=== PATIENT | female | born 1960 | race Caucasian/White ===

== ENCOUNTER 2023-01-25 07:25 | Outpatient (OUT) | payer BC, SELFPAY ==
--- NOTE | 2023-01-25 | VEIN_ITS ---
Patient: SALVADOR SERRATO Exam Date: 01/25/2023 : 1960 Gender:F Ordering : DR JOHNNA BATEMAN M.D. Admission #: [id number] Family : Order #: [id number] CLICK HERE TO VIEW EXAM RADIOLOGY REPORT PROCEDURE: VC EXT VENOUS REFLUX PEDRO LUIS LMTD COMPARISON: None. INDICATIONS: Pain due to varicose veins of bilateral legs I83.813 TECHNIQUE: Duplex imaging of the lower extremity to assess the deep and superficial venous system for the presence of deep or superficial venous incompetence and to document the location and severity of disease. The study includes evaluation of the great saphenous vein (GSV), anterior accessory saphenous vein (AASV) and small saphenous vein (SSV). Patient scanned in reverse Trendelenburg and standing. FINDINGS: RIGHT LOWER EXTREMITY: Saphenofemoral Junction Reflux: Yes 11.8mm 1.3 sec GSV: Diam (mm) Reflux/ Time (sec) Proximal Thigh 7.2 Yes 0.9 Mid Thigh 4.6 Yes 0.2 Distal Thigh 4.6 No Prox Calf 3.9 Yes 0.5 Mid Calf 3.0 Yes 0.3 Saphenopopliteal Junction Reflux: 3.5mm Yes 0.2 SSV: Proximal Calf 2.9 Yes 0.3 Mid Calf 3.4 No AASV: Proximal Thigh 5.9 Yes 0.8 Mid Thigh 4.7 Yes 0.4 Distal Thigh Thrombi: No acute or chronic thrombus. Compressibility: Normal. Flow: Minimal deep venous reflux. Preforator: Distal medial lower leg 2.4 mm without reflux. Mid medial lower leg 5.5 mm with 3.5s reflux. Tech Note: Thigh extention of SSV. Incompetent varicose vein mid medial lower leg measures 4.3 mm with 1.7s reflux. Distal medial thigh varicosity off of GSV measures 4.3 mm with 0.6s reflux. Varicose vein anterior knee off AASV measures 4.0 mm with 1.5s reflux. Varicose vein medial popliteal fossa measures 4.1 mm with 0.6s reflux. LEFT LOWER EXTREMITY: Saphenofemoral Junction Reflux: Yes 9.2 mm 4.2 sec GSV: Diam (mm) Reflux/Time (sec) Proximal Thigh 6.9 Yes 1.3 Mid Thigh 5.5 Yes 1.1 Distal Thigh 4.7 Yes 0.4 Prox Calf 3.9 Yes 0.4 Mid Calf 1.7 No Saphenopopliteal Junction Relux: 4.6 mm No SSV: Proximal Calf 3.0 No Mid Calf 2.5 Yes 4.5 AASV: Proximal Thigh 5.8 Yes 1.3 Mid Thigh 3.5 Yes 0.6 Distal Thigh Thrombi: No acute or chronic thrombus. Compressibility: Normal. Flow: Moderate deep venous reflux. [place]:Distal medial lower leg 2.6 mm with 4.4s reflux. Tech Note: Fluid collection medial popliteal fossa measures 4.8 x 1.8 x 2.6 cm. Thigh extention of SSV. Incompetent varicose vein proximal medial lower leg measures 3.3 mm with 0.5s reflux. Varicosity distal medial thigh measures 3.4 mm with 2.8s reflux. Proximal medial posterior calf varicose vein measures 3.5 mm with 0.4s reflux. CONCLUSION: 1. Dilated, incompetent great saphenous and anterior accessory saphenous veins bilaterally. 2. 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 3. Numerous dilated and incompetent branch saphenous varicosities bilaterally. Dictated by: Beka Butts M.D. on 01/25/2023 at 08:40 Approved by: Beka Butts M.D. on 01/25/2023 at 10:25
--- NOTE | 2023-01-25 | VEIN_ITS ---
Patient: SALVADOR SERRATO Exam Date: 01/25/2023 : 1960 Gender:F Ordering : DR JOHNNA BATEMAN M.D. Admission #: [id number] Family : Order #: [id number] CLICK HERE TO VIEW EXAM RADIOLOGY REPORT PROCEDURE: VC FACILITY EST COMPREHENSIVE VEIN CENTER - OFFICE VISIT INITIAL COMPARISON: VC EXT VENOUS REFLUX PEDRO LUIS LMTD, 01/25/2023. PROGRESS NOTES: [age] year old female who presents with a 4 year history of aching, burning, heaviness, itching, stinging, and dull pain. The patient's left leg symptoms are worse than the right. There has been a progression of symptoms over past 4 years. This increases with prolonged leg dependency. The patient describes an improvement with compression stockings, rest and elevation. The patient denies any signs and symptoms to suggest arterial ischemia. The patient describes a family history varicose veins on maternal side. The patient has drinking and smoking history of: occasional alcohol consumption; no tobacco use. Patient has a past medical history significant for hypertension, edema. The patient denies a history of deep venous thrombus or pulmonary embolus. See separate history and physical for medication list. No prior treatment for varicose or spider veins. Current use of compression stockings. After review of nurse notes, history and physical exam I discussed at length the pathophysiology of venous hypertension and possible treatments, therapies and strategies available. We discussed at length the importance of elevating the lower extremities above the level of the heart, increased physical activity and compression stocking use. Ultrasound venous reflux study performed today was discussed at length with the patient. The report demonstrates dilated, incompetent great saphenous and anterior accessory saphenous veins bilaterally, along with numerous incompetent dilated branch saphenous varicosities. PHYSICAL EXAM: The right leg demonstrates multiple varicosities, extensive reticular and spider veins, no ulceration, moderate edema, mild skin discoloration. The left leg demonstrates multiple varicosities, extensive reticular and spider veins, no ulceration, moderate edema, mild skin discoloration. Both thighs, legs and feet were symmetrically warm to the touch. Good posterior tibial and dorsalis pedis pulses were present bilaterally. VEIN/VC Facility EST Comprehensive IMPRESSION: 1. Bilateral lower extremity venous insufficiency 2. Bilateral lower extremity varicose veins 3. Moderate bilateral lower extremity subcutaneous edema 4. No flow significant arterial disease 5. CEAP: C4a, EC, , [place] PLAN: 1. Continued use of compression stockings 2. Elevated legs and increased physical activity symptomatic relief 3. Endovenous laser ablation of bilateral great saphenous and anterior accessory saphenous veins. 4. Microfoam chemical ablation of incompetent branch saphenous varicosities bilaterally. 5. Sclerotherapy of extensive reticular and spider veins bilaterally. Nurse notes, history and physical were reviewed and confirmed, see attached forms. The nurse was present throughout the physical exam and consultation Dictated by: Beka Butts M.D. on 01/25/2023 at 15:01 Approved by: Beka Butts M.D. on 01/25/2023 at 15:12
== END 2023-01-25 07:26 | disposition home or self-care (01) ==
LOC: VC 07:26
PROVIDERS: PCP Radiology Diagnostic Radiology; Visit Provider Radiology Diagnostic Radiology
DX: I83.813 Varicose veins of bilateral lower extremities with pain (principal)
CPT/HCPCS: 93970; G0463

== ENCOUNTER 2023-03-12 12:17 | Outpatient (OUT) | payer BC, SELFPAY ==
--- NOTE | 2023-03-12 | VEIN_ITS ---
[address] [address] Patient Name: SALVADOR SERRATO MRN: [id number] date: 1960 Sex: F Assigned Patient Location: Current Patient Location: Accession/Order Number: [id number] Exam Date: 03/12/2023 12:25 Report Date: 03/12/2023 16:13 At the request of: JOHNNA BATEMAN Procedure: VC Endovenous Ablation 1VeinLT EXAMINATION: VC Endovenous Ablation 1Vein left great saphenous vein HISTORY: Pain due to varicose veins of bilateral legs I83.813 COMPARISON: No relevant comparison available. TECHNIQUE: The risks and benefits of the procedure had been previously discussed, and were rediscussed at length. Informed written consent was obtained. Luther assisted. Time out procedure was performed. The left lower extremity was prepared and draped in the usual sterile fashion to allow knee flexion in the sterile field. Duplex ultrasound probe was draped in a sterile cover, sterile transmission gel was used. Venous mapping was performed with the areas of dilation and large tributaries marked. The total length was 26 cm from the entry at the knee to 3 cm below the saphenofemoral junction. The diameter of the greater saphenous vein ranged from 4-7 mm. A 30 gauge needle and 1% buffered lidocaine was used to anesthetize the entry site. A 4 mm incision was made with a scalpel and the saphenous vein was entered percutaneously under direct ultrasound guidance with a micropuncture set, a single stick was successful in gaining access. A micro-guide wire was inserted and the needle removed. A micro-set including a dilator was inserted over the microwire and the needle and dilator were removed. A 0.018 guide wire was inserted through the micro-set and threaded through the saphenous vein to the saphenofemoral junction. The dilator was removed and an introducer sheath was inserted over the wire until the end of the sheath entered the saphenofemoral junction. The dilator and wire were removed and the 600 micron fiber was introduced and placed and positioned so that it extended beyond the sheath and was 3 cm peripheral to the saphenofemoral femoral junction. Final position of the fiber was determined by ultrasound guidance and duplex imaging. Tumescent anesthetic was delivered by ultrasound guidance. 150 cc of fluid was delivered along the entire course of the saphenous vein. The solution consisted of 1000 cc of normal saline with 40 mL of 1% lidocaine and 20 mL of sodium bicarbonate. A final positioning check was made. The energy source was turned on by means of the foot pedal and the fiber and sheath were withdrawn. The total number of Joules delivered was 1024. The laser was active for 128 seconds under continuous pulse, average laser use of 8 J. Laser start time 13:43 03/12/23 . Laser stop time 13:45 03/12/23 . A duplex ultrasound revealed compressibility and flow at the saphenofemoral junction immediately after the procedure. Hemostasis at the access site was achieved. The skin incision of the saphenous vein was closed with a 4 x 4. A compression stocking was applied. Postop instructions were given. A follow up appointment was recommended and scheduled. The patient tolerated the procedure well and was discharged in good condition . VEIN/VC Endovenous Ablation 1VeinLT IMPRESSION: Technically successful endovenous laser ablation of the left great saphenous vein Electronically authenticated by: JOHNNA BATEMAN Date: 03/12/2023 16:13
[2023-03-12] MEDS: 0.9 % SODIUM CHLORIDE 500 ML, LIDOCAINE HCL 20 ML, SODIUM BICARBONATE 10 MEQ INJ (13:31)
[2023-03-12] MEDS: LIDOCAINE HCL 10 ML, SODIUM BICARBONATE 1 MEQ INJ (14:31)
== END 2023-03-12 12:18 | disposition home or self-care (01) ==
LOC: VC 12:18
PROVIDERS: PCP Radiology Diagnostic Radiology; Visit Provider Radiology Diagnostic Radiology
DX: I83.813 Varicose veins of bilateral lower extremities with pain (principal)
CPT/HCPCS: 36478

== ENCOUNTER 2023-03-15 14:17 | Outpatient (OUT) | payer BC, SELFPAY ==
--- NOTE | 2023-03-15 | VEIN_ITS ---
Patient: SALVADOR SERRATO Exam Date: 03/15/2023 : 1960 Gender:F Ordering : DR OSMAR PHILLIPS M.D. Admission #: [id number] Family : Order #: [id number] CLICK HERE TO VIEW EXAM RADIOLOGY REPORT PROCEDURE: VC FACILITY EST LMTD VEIN CENTER - OFFICE VISIT FOLLOW UP COMPARISON: None. PROGRESS NOTES: The patient reports improvement in leg symptoms. The patient did not require oral analgesics. The patient has worn her compression stockings as directed. The patient has followed our recommendations to walk 20-30 minutes once or twice per day since the procedure. Physical exam demonstrates Several small areas of bruising identified related to tumescence injection in the left medial thigh measuring up to 1 cm in diameter. No areas of erythema or warmth to suggest cellulitis or thrombophlebitis. No active ulceration Review of the ultrasound performed the same day demonstrates occlusive thrombus extending throughout the treated left great saphenous vein. The patient expressed a desire to proceed with treatment of incompetent right anterior accessory saphenous vein with subsequent recheck of the left anterior accessory saphenous vein. We decided to not treat the right great saphenous vein at this time due to disease being present only in the very proximal portion, we will re-evaluate the right great saphenous vein in 12-24 months. VEIN/VC Facility EST LMTD IMPRESSION: 1. Successful ablation of the left great saphenous vein 2. Persistent bilateral incompetent anterior accessory saphenous vein. PLAN: Intravenous laser ablation of the right anterior accessory saphenous vein Nurse notes, history and physical were reviewed and confirmed, see attached forms. The nurse was present throughout the physical exam and consultation Dictated by: Osmar Phillips MD on 03/15/2023 at 15:37 Approved by: Osmar Phillips MD on 03/15/2023 at 15:40
--- NOTE | 2023-03-15 | VEIN_ITS ---
Patient: SALVADOR SERRATO Exam Date: 03/15/2023 : 1960 Gender:F Ordering : DR OSMAR PHILLIPS M.D. Admission #: [id number] Family : Order #: [id number] CLICK HERE TO VIEW EXAM RADIOLOGY REPORT PROCEDURE: VC EXT VENOUS LT LIMITED COMPARISON: None. INDICATIONS: Phlebitis of superficial veins of lt lower extremity I80.02 TECHNIQUE: Lower extremity arcos scale and Duplex Doppler evaluation of the deep venous system from the inguinal ligament through the calf veins. FINDINGS: REGION: Left lower extremity. THROMBI: Negative for DVT. Heat induced thrombus in left GSV 1.0 cm from SFJ and extends to distal thigh. COMPRESSIBILITY: Non-compressible segments corresponding to thrombus. FLOW: Absent flow corresponding to thrombus OTHER: CONCLUSION: Post ablation occlusion of the treated left great saphenous vein with heat induced thrombus 1 cm from the saphenofemoral junction Dictated by: Osmar Phillips MD on 03/15/2023 at 14:59 Approved by: Osmar Phillips MD on 03/15/2023 at 15:00
== END 2023-03-15 14:18 | disposition home or self-care (01) ==
LOC: VC 14:17
PROVIDERS: PCP Radiology Diagnostic Radiology; Visit Provider Radiology Diagnostic Radiology
DX: I80.02 Phlebitis and thrombophlebitis of superficial vessels of left lower extremity (principal)
CPT/HCPCS: 93971; G0463

== ENCOUNTER 2023-03-30 09:16 | Outpatient (OUT) | payer BC, SELFPAY ==
--- NOTE | 2023-03-30 | VEIN_ITS ---
[address] [address] Patient Name: SALVADOR SERRATO MRN: [id number] date: 1960 Sex: F Assigned Patient Location: Current Patient Location: Accession/Order Number: [id number] Exam Date: 03/30/2023 09:16 Report Date: 03/30/2023 11:23 At the request of: JOHNNA BATEMAN Procedure: VC Endovenous Ablation 1VeinRT EXAMINATION: VC Endovenous Ablation 1Vein right anterior accessory saphenous vein HISTORY: Pain due to varicose veins of bilateral legs I83.813 COMPARISON: No relevant comparison available. TECHNIQUE: The risks and benefits of the procedure had been previously discussed, and were rediscussed at length. Informed written consent was obtained. Bridget Alejo and Lizzie Ceron assisted. Time out procedure was performed. The right lower extremity was prepared and draped in the usual sterile fashion to allow knee flexion in the sterile field. Duplex ultrasound probe was draped in a sterile cover, sterile transmission gel was used. Venous mapping was performed with the areas of dilation and large tributaries marked. The total length was 22 cm from the entry mid to distal thigh to 3 cm below the saphenofemoral junction. The diameter of the greater saphenous vein ranged from 5-6 mm. A 30 gauge needle and 1% buffered lidocaine was used to anesthetize the entry site. A 4 mm incision was made with a scalpel and the saphenous vein was entered percutaneously under direct ultrasound guidance with a micropuncture set, a single stick was successful in gaining access. A micro-guide wire was inserted and the needle removed. A micro-set including a dilator was inserted over the microwire and the needle and dilator were removed. A 0.018 guide wire was inserted through the micro-set and threaded through the saphenous vein to the saphenofemoral junction. The dilator was removed and an introducer sheath was inserted over the wire until the end of the sheath entered the saphenofemoral junction. The dilator and wire were removed and the 600 micron fiber was introduced and placed and positioned so that it extended beyond the sheath and was 3 cm peripheral to the saphenofemoral femoral junction. Final position of the fiber was determined by ultrasound guidance and duplex imaging. Tumescent anesthetic was delivered by ultrasound guidance. 150 cc of fluid was delivered along the entire course of the saphenous vein. The solution consisted of 1000 cc of normal saline with 40 mL of 1% lidocaine and 20 mL of sodium bicarbonate. A final positioning check was made. The energy source was turned on by means of the foot pedal and the fiber and sheath were withdrawn. The total number of Joules delivered was 1006. The laser was active for 126 seconds under continuous pulse, average laser use of 8 J. Laser start time 10:00 AM 03/30/2023 . Laser stop time 10:03 AM 03/30/2023 . A duplex ultrasound revealed compressibility and flow at the saphenofemoral junction immediately after the procedure. Hemostasis at the access site was achieved. The skin incision of the saphenous vein was closed with a 4 x 4. A compression stocking was applied. Postop instructions were given. A follow up appointment was recommended and scheduled. The patient tolerated the procedure well and was discharged in good condition . VEIN/VC Endovenous Ablation 1VeinRT IMPRESSION: Technically successful endovenous laser ablation right anterior accessory saphenous vein Electronically authenticated by: JOHNNA BATEMAN Date: 03/30/2023 11:23
[2023-03-30] MEDS: 0.9 % SODIUM CHLORIDE 500 ML, LIDOCAINE HCL 20 ML, SODIUM BICARBONATE 10 MEQ INJ (10:00)
== END 2023-03-30 09:17 | disposition home or self-care (01) ==
LOC: VC 09:16
PROVIDERS: PCP Radiology Diagnostic Radiology; Visit Provider Radiology Diagnostic Radiology
DX: I83.813 Varicose veins of bilateral lower extremities with pain (principal)
CPT/HCPCS: 36478

== ENCOUNTER 2023-04-02 13:16 | Outpatient (OUT) | payer BC, SELFPAY ==
--- NOTE | 2023-04-02 13:17 | VEIN_ITS ---
Patient: SALVADOR SERRATO Exam Date: 04/02/2023 : 1960 Gender:F Ordering : DR OSMAR PHILLIPS M.D. Admission #: [id number] Family : Order #: [id number] CLICK HERE TO VIEW EXAM RADIOLOGY REPORT PROCEDURE: [facility] EST LMTD VEIN CENTER - OFFICE VISIT FOLLOW UP [facility] PROGRESS NOTES: The patient reports no problems following intravenous laser ablation of the right anterior accessory saphenous vein. The patient did require oral analgesics. The patient has compression stockings. The patient has followed our recommendations to walk 20-30 minutes once or twice per day since the procedure. Physical exam demonstrates 3 areas of bruising in the anterior right thigh related to tumescence injection. The excision site is closed. Thrombosed right anterior accessory saphenous vein can be partially palpated. No areas of erythema or warmth to suggest cellulitis or thrombophlebitis. No active ulceration Review of the ultrasound performed the same day demonstrates occlusive thrombus extending throughout the treated right anterior accessory saphenous vein with heat induced thrombus 1.6 cm from the saphenofemoral junction. The patient expressed a desire to proceed with treatment of incompetent varicose veins with micro foam chemical ablation. VEIN/[facility] EST TD IMPRESSION: 1. Successful ablation of the right anterior accessory saphenous vein 2. Persistent bilateral incompetent varicose veins. PLAN: Micro foam chemical ablation of the right leg Nurse notes, history and physical were reviewed and confirmed, see attached forms. The nurse was present throughout the physical exam and consultation Dictated by: Osmar Phillips MD on 04/02/2023 at 14:11 Approved by: Osmar Phillips MD on 04/02/2023 at 14:12
--- NOTE | 2023-04-02 13:17 | VEIN_ITS ---
Patient: SALVADOR SERRATO Exam Date: 04/02/2023 : 1960 Gender:F Ordering : DR OSMAR PHILLIPS M.D. Admission #: [id number] Family : Order #: [id number] CLICK HERE TO VIEW EXAM RADIOLOGY REPORT PROCEDURE: VC EXT VENOUS RT LMTD COMPARISON: None. INDICATIONS: I80.01 Phlebitis of superficial veins of rt lower extremity TECHNIQUE: Lower extremity arcos scale and Duplex Doppler evaluation of the deep venous system from the inguinal ligament through the calf veins. FINDINGS: REGION: Right lower extremity. THROMBI: Negative for DVT. Heat induced thrombus visualized 1.6 cm from the SFJ. The heat induced thrombus extends from groin and distal thigh. COMPRESSIBILITY: Non-compressible segments corresponding to 3. FLOW: Absent flow corresponding to thrombus CONCLUSION: Post ablation occlusion of the right anterior accessory saphenous vein with heat induced thrombus 1.6 cm from the saphenofemoral junction Dictated by: Osmar Phillips MD on 04/02/2023 at 13:58 Approved by: Osmar Phillips MD on 04/02/2023 at 14:00
== END 2023-04-02 13:17 | disposition home or self-care (01) ==
LOC: VC 13:16
PROVIDERS: PCP Radiology Diagnostic Radiology; Visit Provider Radiology Diagnostic Radiology
DX: I80.01 Phlebitis and thrombophlebitis of superficial vessels of right lower extremity (principal)
CPT/HCPCS: 93971; G0463

== ENCOUNTER 2023-04-05 13:22 | Outpatient (OUT) | payer BC, SELFPAY ==
--- NOTE | 2023-04-05 13:23 | VEIN_ITS ---
[address] [address] Patient Name: SALVADOR SERRATO MRN: [id number] date: 1960 Sex: F Assigned Patient Location: Current Patient Location: Accession/Order Number: [id number] Exam Date: 04/05/2023 13:23 Report Date: 04/05/2023 15:20 At the request of: JOHNNA BATEMAN Procedure: VC INJ Foam Sclerosant [employer]BER PROCEDURE: VC INJ Foam Sclerosant [employer]BER COMPARISON: None. HISTORY: Pain due to varicose veins of bilateral legs I83.813 Pre-operative Diagnosis: CEAP class C4a venous insufficiency with pain, tenderness, edema and incompetent left great saphenous vein(s) and varicose veins, chronic venous insufficiency left leg secondary to venous incompetence Post-operative Diagnosis: CEAP class C4a venous insufficiency with pain, tenderness, edema and incompetent left great saphenous vein(s) and varicose veins, chronic venous insufficiency left leg secondary to venous incompetence Procedure Performed: 1. Ultrasound-guided microfoam chemical ablation with Varithenaregistered 2. Intraoperative ultrasound guidance Anesthesia: None Indications for Procedure: 62-year-old female presents with a 4 year history of headaches and burning heterogeneous imaging and standing. The patient failed conservative medical therapy including medical compression stockings, exercise and analgesics. Prior procedures include endovenous laser ablation. Multiple incompetent varicosities of the left leg. Duplex scan showed reflux and enlarged diameters up to 5 mm. The patient underwent informed consent including management options where the complications of infection, bleeding, pain, and skin injury were discussed. Particular attention was spent discussing thrombus extension and deep vein thrombosis as well as the possibility of pulmonary embolus and treatment with oral or injectable blood thinners. Procedure: The patient walked to the procedure room. All applicable staff donned appropriate apparel. A procedure timeout was performed to confirm correct patient, correct extremity, correct procedure, and correct room set-up including presence of all applicable supplies, devices, and drugs. A duplex ultrasound, performed by myself confirmed the location and incompetence of branch saphenous varicosities and their course was marked on the skin together with the dilated tributaries. The extent of treatment of the vein and the associated varicosities was determined through ultrasound mapping. The skin was prepped and then punctured with a butterfly needle and advanced under ultrasound guidance. The following injection of MA: 5 cc injected into a 4 mm varicose vein distal medial left lower leg 5 cc injected into a 4 mm varicose vein proximal medial left lower leg 5 cc injected into a 4 mm varicose vein distal lateral left lower leg The Varithenaregistered canister was activated and the canister was primed and purged as required in the instructions for use. Varithenaregistered was drawn into a sterile syringe. Varithenaregistered was slowly administered at 0.5-1.0 cc/second with close observation by ultrasound of its course in the vessels. Total volume utilized was: 15 cc. Following administration of Varithenaregistered the leg was elevated and the patient was asked to repeatedly dorsiflex the ankle to limit flow of Varithenaregistered into perforating veins. Once appropriate spasm had been confirmed in the treated veins, the vascular catheter was removed from the leg and light pressure was applied over the puncture site for hemostasis. The common femoral and deep superficial veins were then evaluated for flow and compressibility prior to dressing placement. The lower extremity was kept elevated at 45 degrees above the horizontal and cording material was applied over the saphenous segments and tributaries to allow for eccentric compression over the target vessels including the targeted saphenous vein(s). A multilayer dressing was applied consisting of foam pads, coban and thigh-high 20-30 mm Hg compression elastic support hose were placed on the patient. The leg was lowered only after compression had been applied and the patient was immediately ambulatory. The patient ambulated 10 minutes under supervision and was without apparent concerns at time of release. Post-care instructions include advising patient to keep post-treatment bandages in place and dry for 48 hours, avoid extended periods of inactivity, avoid heavy exercise for one week, wear compression stockings on the treated leg continuously for two weeks, to walk daily for 10 minutes over the next month. The patient was instructed to take an anti-inflammatory medicine as needed and to follow up for color duplex scan of the Saphenous veins, the treated branch saphenous varicosities, the adjacent deep veins, and additional treatment within 7 days. PERSONNEL: Janusz Duarte RN Electronically authenticated by: JOHNNA BATEMAN Date: 04/05/2023 15:20
== END 2023-04-05 13:23 | disposition home or self-care (01) ==
LOC: VC 13:22
PROVIDERS: PCP Radiology Diagnostic Radiology; Visit Provider Radiology Diagnostic Radiology
DX: I83.813 Varicose veins of bilateral lower extremities with pain (principal)
CPT/HCPCS: 36466

== ENCOUNTER 2023-04-09 13:15 | Outpatient (OUT) | payer BC, SELFPAY ==
--- NOTE | 2023-04-09 | VEIN_ITS ---
Patient: SALVADOR SERRATO Exam Date: 04/09/2023 : 1960 Gender:F Ordering : DR JOHNNA BATEMAN M.D. Admission #: [id number] Family : Order #: [id number] CLICK HERE TO VIEW EXAM RADIOLOGY REPORT PROCEDURE: [facility] EST LMTD VEIN CENTER - OFFICE VISIT FOLLOW UP [facility] PROGRESS NOTES: The patient reports improvement in leg symptoms. There has been interval reduction in varicosities. The patient has followed our recommendations to walk 20-30 minutes once or twice per day since the procedure. Physical exam demonstrates decrease in varicosities of the leg. Persistent superficial varicosities are identified along the right leg and extensive amount of reticular and spider veins bilaterally. Review of the ultrasound performed the same day demonstrates occlusive thrombus extending throughout the treated vein(s), see separate report, consistent with a successful ablation. No thrombus extending into or beyond the saphenofemoral junction. The patient expressed a desire to proceed with treatment of remaining incompetent varicosities. The patient was informed that treatment was a process and would require several procedures/sessions. VEIN/[facility] EST TD IMPRESSION: 1. Successful ablation of the treated left lower extremity branch saphenous vein(s). 2. Persistent incompetent branch saphenous veins and reticular/spider veins with improving lower extremity symptoms. PLAN: 1. Microfoam chemical ablation of right leg abnormal branch saphenous varicosities. 2. Bilateral lower extremity sclerotherapy for reticular and spider veins. Nurse notes, history and physical were reviewed and confirmed, see attached forms. The nurse was present throughout the physical exam and consultation Dictated by: Beka Butts M.D. on 04/09/2023 at 14:25 Approved by: Beka Butts M.D. on 04/09/2023 at 14:27
--- NOTE | 2023-04-09 | VEIN_ITS ---
Patient: SALVADOR SERRATO Exam Date: 04/09/2023 : 1960 Gender:F Ordering : DR JOHNNA BATEMAN M.D. Admission #: [id number] Family : Order #: [id number] CLICK HERE TO VIEW EXAM RADIOLOGY REPORT PROCEDURE: VC EXT VENOUS LT LIMITED COMPARISON: VC EXT VENOUS LT LIMITED, 03/15/2023. INDICATIONS: Phlebitis of superficial veins of lt lower extremity I80.02 TECHNIQUE: Lower extremity arcos scale and Duplex Doppler evaluation of the deep venous system from the inguinal ligament through the calf veins. FINDINGS: REGION: Left lower extremity. THROMBI: Negative for DVT. Chemically induced thrombus in multiple varicose veins in left leg. COMPRESSIBILITY: Non-compressible segments. FLOW: Areas of no flow. OTHER: Small varicosities remain under 2 mm. CONCLUSION: 1. Successful post ablation occlusion of treated left lower extremity branch saphenous varicosities. Dictated by: Beka Butts M.D. on 04/09/2023 at 14:16 Approved by: Beka Butts M.D. on 04/09/2023 at 14:25
== END 2023-04-09 13:16 | disposition home or self-care (01) ==
LOC: VC 13:16
PROVIDERS: PCP Radiology Diagnostic Radiology; Visit Provider Radiology Diagnostic Radiology
DX: I80.02 Phlebitis and thrombophlebitis of superficial vessels of left lower extremity (principal)
CPT/HCPCS: 93971; G0463

== ENCOUNTER 2023-04-13 12:23 | Outpatient (OUT) | payer BC, SELFPAY ==
--- NOTE | 2023-04-13 12:24 | VEIN_ITS ---
[address] [address] Patient Name: SALVADOR SERRATO MRN: [id number] date: 1960 Sex: F Assigned Patient Location: Current Patient Location: Accession/Order Number: [id number] Exam Date: 04/13/2023 12:40 Report Date: 04/13/2023 14:39 At the request of: JOHNNA BATEMAN Procedure: VC INJ Foam Sclerosant WUS ALUM MIXER PROCEDURE: VC INJ Foam Sclerosant WUS ALUM MIXER COMPARISON: None. HISTORY: Pain due to varicose veins of bilateral legs I83.813 Pre-operative Diagnosis: CEAP class C4a venous insufficiency with pain, tenderness, edema and incompetent saphenous and varicose vein(s), chronic venous insufficiency left leg secondary to venous incompetence Post-operative Diagnosis: CEAP class C4a venous insufficiency with pain, tenderness, edema and incompetent saphenous and varicose vein(s), chronic venous insufficiency left leg secondary to venous incompetence Procedure Performed: 1. Ultrasound-guided microfoam chemical ablation with Varithenaregistered 2. Intraoperative ultrasound guidance Anesthesia: None Indications for Procedure: 62-year-old female who presents with a long history of lower extremity pain, burning in varicose veins. The patient failed conservative medical therapy including medical compression stockings, exercise and analgesics. Prior procedures include . Multiple incompetent varicosities of the left leg. Duplex scan showed reflux and enlarged diameters up to 5 mm. The patient underwent informed consent including management options where the complications of infection, bleeding, pain, and skin injury were discussed. Particular attention was spent discussing thrombus extension and deep vein thrombosis as well as the possibility of pulmonary embolus and treatment with oral or injectable blood thinners. Procedure: The patient walked to the procedure room. All applicable staff donned appropriate apparel. A procedure timeout was performed to confirm correct patient, correct extremity, correct procedure, and correct room set-up including presence of all applicable supplies, devices, and drugs. A duplex ultrasound, performed by myself confirmed the location and incompetence of branch saphenous varicosities and their course was marked on the skin together with the dilated tributaries. The extent of treatment of the vein and the associated varicosities was determined through ultrasound mapping. The skin was prepped and then punctured with a butterfly needle and advanced under ultrasound guidance. The Varithenaregistered canister was activated and the canister was primed and purged as required in the instructions for use. Varithenaregistered was drawn into a sterile syringe. The following injections MA: 5 cc injected into a 5 mm varicose vein distal medial right lower leg 5 cc injected into 5 mm varicose vein proximal medial right lower lobe 5 cc injected into a 5 mm varicose vein distal medial right thigh Varithenaregistered was slowly administered at 0.5-1.0 cc/second with close observation by ultrasound of its course in the vessels. Total volume utilized was: 15 cc. Following administration of Varithenaregistered the leg was elevated and the patient was asked to repeatedly dorsiflex the ankle to limit flow of Varithenaregistered into perforating veins. Once appropriate spasm had been confirmed in the treated veins, the vascular catheter was removed from the leg and light pressure was applied over the puncture site for hemostasis. The common femoral and deep superficial veins were then evaluated for flow and compressibility prior to dressing placement. The lower extremity was kept elevated at 45 degrees above the horizontal and cording material was applied over the saphenous segments and tributaries to allow for eccentric compression over the target vessels including the targeted saphenous vein(s). A multilayer dressing was applied consisting of foam pads, coban and thigh-high 20-30 mm Hg compression elastic support hose were placed on the patient. The leg was lowered only after compression had been applied and the patient was immediately ambulatory. The patient ambulated 10 minutes under supervision and was without apparent concerns at time of release. Post-care instructions include advising patient to keep post-treatment bandages in place and dry for 48 hours, avoid extended periods of inactivity, avoid heavy exercise for one week, wear compression stockings on the treated leg continuously for two weeks, to walk daily for 10 minutes over the next month. The patient was instructed to take an anti-inflammatory medicine as needed and to follow up for color duplex scan of the Saphenous veins, the treated branch saphenous varicosities, the adjacent deep veins, and additional treatment within 7 days. PERSONNEL: Bridget Alejo RN Electronically authenticated by: JOHNNA BATEMAN Date: 04/13/2023 14:39
== END 2023-04-13 12:24 | disposition home or self-care (01) ==
LOC: VC 12:23
PROVIDERS: PCP Radiology Diagnostic Radiology; Visit Provider Radiology Diagnostic Radiology
DX: I83.813 Varicose veins of bilateral lower extremities with pain (principal)
CPT/HCPCS: 36466

== ENCOUNTER 2023-04-16 13:19 | Outpatient (OUT) | payer BC, SELFPAY ==
--- NOTE | 2023-04-16 13:22 | VEIN_ITS ---
Patient: SALVADOR SERRATO Exam Date: 04/16/2023 : 1960 Gender:F Ordering : DR JOHNNA BATEMAN M.D. Admission #: [id number] Family : Order #: [id number] CLICK HERE TO VIEW EXAM RADIOLOGY REPORT PROCEDURE: VC EXT VENOUS RT LMTD COMPARISON: VC EXT VENOUS RT LMTD, 04/02/2023. INDICATIONS: I80.01 Phlebitis of superficial veins of rt lower extremity TECHNIQUE: Lower extremity arcos scale and Duplex Doppler evaluation of the deep venous system from the inguinal ligament through the calf veins. FINDINGS: REGION: Right lower extremity. THROMBI: Negative for DVT. Varithena induced thrombus visualized at mid/med thigh and mid/med calf. COMPRESSIBILITY: Non-compressible segments. FLOW: Areas of no flow. OTHER: Multiple varicose veins remain measuring up to 4.7mm with 0.9s reflux. CONCLUSION: 1. Successful post ablation occlusion of treated right leg branch saphenous varicosities. Dictated by: Beka Butts M.D. on 04/16/2023 at 13:46 Approved by: Beka Butts M.D. on 04/16/2023 at 13:47
--- NOTE | 2023-04-16 13:22 | VEIN_ITS ---
Patient: SALVADOR SERRATO Exam Date: 04/16/2023 : 1960 Gender:F Ordering : DR JOHNNA BATEMAN M.D. Admission #: [id number] Family : Order #: [id number] CLICK HERE TO VIEW EXAM RADIOLOGY REPORT PROCEDURE: [facility] EST LMTD VEIN CENTER - OFFICE VISIT FOLLOW UP [facility] PROGRESS NOTES: The patient reports improvement in leg symptoms. There has been interval reduction in varicosities. The patient has followed our recommendations to walk 20-30 minutes once or twice per day since the procedure. Physical exam demonstrates decrease in varicosities of the leg. Persistent varicosities on right leg and and numerous reticular veins and spider veins are identified along the bilateral legs. Review of the ultrasound performed the same day demonstrates occlusive thrombus extending throughout the treated vein(s), see separate report, consistent with a successful ablation. No thrombus extending into or beyond the saphenofemoral junction. The patient expressed a desire to proceed with treatment of remaining abnormal varicosities. The patient was informed that treatment was a process and would require 1 more microfoam chemical ablation procedures/sessions followed by several treatments of sclerotherapy. VEIN/[facility] EST LMTD IMPRESSION: 1. Successful ablation of the treated right leg branch saphenous vein(s). 2. Persistent right lower extremity abnormal branch saphenous veins and bilateral lower extremity mild symptoms. PLAN: 1. Microfoam chemical ablation of right leg remaining abnormal branch saphenous varicosities. 2. Bilateral lower extremity sclerotherapy. Nurse notes, history and physical were reviewed and confirmed, see attached forms. The nurse was present throughout the physical exam and consultation Dictated by: Beka Butts M.D. on 04/16/2023 at 13:47 Approved by: Beka Butts M.D. on 04/16/2023 at 13:49
== END 2023-04-16 13:20 | disposition home or self-care (01) ==
LOC: VC 13:20
PROVIDERS: PCP Radiology Diagnostic Radiology; Visit Provider Radiology Diagnostic Radiology
DX: I80.01 Phlebitis and thrombophlebitis of superficial vessels of right lower extremity (principal)
CPT/HCPCS: 93971; G0463

== ENCOUNTER 2023-04-19 13:16 | Outpatient (OUT) | payer BC, SELFPAY ==
--- NOTE | 2023-04-19 | VEIN_ITS ---
[address] [address] Patient Name: SALVADOR SERRATO MRN: [id number] date: 1960 Sex: F Assigned Patient Location: Current Patient Location: Accession/Order Number: [id number] Exam Date: 04/19/2023 13:15 Report Date: 04/19/2023 15:37 At the request of: JOHNNA BATEMAN Procedure: VC INJ Foam Sclerosant WUS FIRE INVESTIGATION LIEUTENANT PROCEDURE: VC INJ Foam Sclerosant WUS FIRE INVESTIGATION LIEUTENANT COMPARISON: None. HISTORY: Pain due to varicose veins of bilateral legs I83.813 Pre-operative Diagnosis: CEAP class C4a venous insufficiency with pain, tenderness, edema and incompetent left great saphenous vein and varicose veins, chronic venous insufficiency left leg secondary to venous incompetence Post-operative Diagnosis: CEAP class C4a venous insufficiency with pain, tenderness, edema and incompetent left great saphenous vein and varicose veins, chronic venous insufficiency left leg secondary to venous incompetence Procedure Performed: 1. Ultrasound-guided microfoam chemical ablation with Varithenaregistered 2. Intraoperative ultrasound guidance Indications for Procedure: 62 year old male with a long history of pain, burning and varicose veins. The patient failed conservative medical therapy including medical compression stockings, exercise and analgesics. Prior procedures include endovenous laser ablation. Multiple incompetent varicosities of the left leg. Duplex scan showed reflux and enlarged diameters up to 6 mm. The patient underwent informed consent including management options where the complications of infection, bleeding, pain, and skin injury were discussed. Particular attention was spent discussing thrombus extension and deep vein thrombosis as well as the possibility of pulmonary embolus and treatment with oral or injectable blood thinners. Procedure: The patient walked to the procedure room. All applicable staff donned appropriate apparel. A procedure timeout was performed to confirm correct patient, correct extremity, correct procedure, and correct room set-up including presence of all applicable supplies, devices, and drugs. A duplex ultrasound, performed by myself confirmed the location and incompetence of branch saphenous varicosities and their course was marked on the skin together with the dilated tributaries. The extent of treatment of the vein and the associated varicosities was determined through ultrasound mapping. The skin was prepped and then punctured with a butterfly needle and advanced under ultrasound guidance. The Varithenaregistered canister was activated and the canister was primed and purged as required in the instructions for use. Varithenaregistered was drawn into a sterile syringe. 7 cc injected into a 6mm vein distal left medial left leg 8 cc injected into a 6mm vein distal left medial thigh Varithenaregistered was slowly administered at 0.5-1.0 cc/second with close observation by ultrasound of its course in the vessels. Total volume utilized was: 15 cc. Following administration of Varithenaregistered the leg was elevated and the patient was asked to repeatedly dorsiflex the ankle to limit flow of Varithenaregistered into perforating veins. Once appropriate spasm had been confirmed in the treated veins, the vascular catheter was removed from the leg and light pressure was applied over the puncture site for hemostasis. The common femoral and deep superficial veins were then evaluated for flow and compressibility prior to dressing placement. The lower extremity was kept elevated at 45 degrees above the horizontal and cording material was applied over the saphenous segments and tributaries to allow for eccentric compression over the target vessels including the targeted saphenous vein(s). A multilayer dressing was applied consisting of foam pads, coban and thigh-high 20-30 mm Hg compression elastic support hose were placed on the patient. The leg was lowered only after compression had been applied and the patient was immediately ambulatory. The patient ambulated 10 minutes under supervision and was without apparent concerns at time of release. Post-care instructions include advising patient to keep post-treatment bandages in place and dry for 48 hours, avoid extended periods of inactivity, avoid heavy exercise for one week, wear compression stockings on the treated leg continuously for two weeks, to walk daily for 10 minutes over the next month. The patient was instructed to take an anti-inflammatory medicine as needed and to follow up for color duplex scan of the Saphenous veins, the treated branch saphenous varicosities, the adjacent deep veins, and additional treatment within 7 days. PERSONNEL: Janusz Duarte RN Electronically authenticated by: JOHNNA BATEMAN Date: 04/19/2023 15:37
== END 2023-04-19 13:17 | disposition home or self-care (01) ==
LOC: VC 13:16
PROVIDERS: PCP Radiology Diagnostic Radiology; Visit Provider Radiology Diagnostic Radiology
DX: I83.813 Varicose veins of bilateral lower extremities with pain (principal)
CPT/HCPCS: 36466

== ENCOUNTER 2023-04-22 13:20 | Outpatient (OUT) | payer BC, SELFPAY ==
--- NOTE | 2023-04-22 13:21 | VEIN_ITS ---
Patient: SALVADOR SERRATO Exam Date: 04/22/2023 : 1960 Gender:F Ordering : DR OSMAR PHILLIPS M.D. Admission #: [id number] Family : Order #: [id number] CLICK HERE TO VIEW EXAM RADIOLOGY REPORT PROCEDURE: VC EXT VENOUS LT LIMITED COMPARISON: VC EXT VENOUS LT LIMITED, 04/09/2023. VC EXT VENOUS LT LIMITED, 03/15/2023. INDICATIONS: I80.02 Phlebitis of superficial veins of lt lower extremity TECHNIQUE: Lower extremity arcos scale and Duplex Doppler evaluation of the deep venous system from the inguinal ligament through the calf veins. FINDINGS: REGION: Left lower extremity. THROMBI: Negative for DVT. Varithena induced thrombus visualized at mid/med calf and mid/med thigh. COMPRESSIBILITY: Non-compressible segments corresponding to thrombus. FLOW: Absent flow corresponding to thrombus OTHER: No patent varicose veins remain. CONCLUSION: Post ablation occlusion of treated left leg incompetent varicose veins with no residual varicose veins observed Dictated by: Osmar Phillips MD on 04/22/2023 at 13:38 Approved by: Osmar Phillips MD on 04/22/2023 at 13:38
--- NOTE | 2023-04-22 13:21 | VEIN_ITS ---
Patient: SALVADOR SERRATO Exam Date: 04/22/2023 : 1960 Gender:F Ordering : DR OSMAR PHILLIPS M.D. Admission #: [id number] Family : Order #: [id number] CLICK HERE TO VIEW EXAM RADIOLOGY REPORT PROCEDURE: F[facility]ILITY EST LMTD VEIN CENTER - OFFICE VISIT FOLLOW UP COMPARISON: [facility] EST LMTD, 04/16/2023. FACILITY EST LMTD, 04/09/2023. PROGRESS NOTES: The patient reports no significant problems following micro foam chemical ablation of the left leg. The patient did wear her compression stockings. There has been interval reduction in varicosities. The patient has followed our recommendations to walk 20-30 minutes once or twice per day since the procedure. Physical exam demonstrates multiple thrombosed varicose veins. No residual incompetent varicose veins. Significant decrease in redness and swelling compared to initial presenting exam. No areas of erythema or warmth to suggest cellulitis or thrombophlebitis. No active ulceration Review of the ultrasound performed the same day demonstrates occlusive thrombus extending throughout the treated left leg treated varicose veins. No deep vein thrombus. No residual varicose veins on the left. Residual varicose veins on the right are observed. The patient expressed a desire to proceed with treatment of incompetent right leg varicose veins. VEIN/[facility] EST LMTD IMPRESSION: 1. Successful ablation of incompetent left leg varicose veins 2. Persistent incompetent right leg varicose veins. PLAN: Micro foam chemical ablation right leg incompetent varicose veins Nurse notes, history and physical were reviewed and confirmed, see attached forms. The nurse was present throughout the physical exam and consultation Dictated by: Osmar Phillips MD on 04/22/2023 at 15:35 Approved by: Osmar Phillips MD on 04/22/2023 at 15:36
== END 2023-04-22 13:21 | disposition home or self-care (01) ==
LOC: VC 13:20
PROVIDERS: PCP Radiology Diagnostic Radiology; Visit Provider Radiology Diagnostic Radiology
DX: I80.02 Phlebitis and thrombophlebitis of superficial vessels of left lower extremity (principal)
CPT/HCPCS: 93971; G0463

== ENCOUNTER 2023-05-07 12:56 | Outpatient (OUT) | payer BC, SELFPAY ==
--- NOTE | 2023-05-07 | VEIN_ITS ---
[address] [address] Patient Name: SALVADOR SERRATO MRN: [id number] date: 1960 Sex: F Assigned Patient Location: Current Patient Location: Accession/Order Number: [id number] Exam Date: 05/07/2023 13:00 Report Date: 05/07/2023 15:07 At the request of: JOHNNA BATEMAN Procedure: VC INJ Foam Sclerosant WUS FAMILY LIFE EDUCATOR PROCEDURE: VC INJ Foam Sclerosant WUS FAMILY LIFE EDUCATOR COMPARISON: None. HISTORY: Painful Varicose Veins I83.813 Pre-operative Diagnosis: CEAP class C3 venous insufficiency with pain, tenderness, edema and incompetent right great saphenous and varicose vein(s), chronic venous insufficiency right leg secondary to venous incompetence Post-operative Diagnosis: CEAP class C3 venous insufficiency with pain, tenderness, edema and incompetent right great saphenous and varicose vein(s), chronic venous insufficiency right leg secondary to venous incompetence Procedure Performed: 1. Ultrasound-guided microfoam chemical ablation with Varithenaregistered 2. Intraoperative ultrasound guidance Anesthesia: None Indications for Procedure: 62-year-old female presents with a long history of lower extremity pain and swelling. The patient failed conservative medical therapy including medical compression stockings, exercise and analgesics. Prior procedures include . Multiple incompetent varicosities of the right leg. Duplex scan showed reflux and enlarged diameters up to 5 mm. The patient underwent informed consent including management options where the complications of infection, bleeding, pain, and skin injury were discussed. Particular attention was spent discussing thrombus extension and deep vein thrombosis as well as the possibility of pulmonary embolus and treatment with oral or injectable blood thinners. Procedure: The patient walked to the procedure room. All applicable staff donned appropriate apparel. A procedure timeout was performed to confirm correct patient, correct extremity, correct procedure, and correct room set-up including presence of all applicable supplies, devices, and drugs. A duplex ultrasound, performed by myself confirmed the location and incompetence of branch saphenous varicosities and their course was marked on the skin together with the dilated tributaries. The extent of treatment of the vein and the associated varicosities was determined through ultrasound mapping. The skin was prepped and then punctured with a butterfly needle and advanced under ultrasound guidance. The Varithenaregistered canister was activated and the canister was primed and purged as required in the instructions for use. Varithenaregistered was drawn into a sterile syringe. The following injections were made: 6 cc into a 5 mm varicose vein distal medial right lower leg 6 cc into a 5 mm varicose vein distal anterior right thigh 3 cc into a 4 mm varicose vein mid medial right thigh Varithenaregistered was slowly administered at 0.5-1.0 cc/second with close observation by ultrasound of its course in the vessels. Total volume utilized was: 15 cc. Following administration of Varithenaregistered the leg was elevated and the patient was asked to repeatedly dorsiflex the ankle to limit flow of Varithenaregistered into perforating veins. Once appropriate spasm had been confirmed in the treated veins, the vascular catheter was removed from the leg and light pressure was applied over the puncture site for hemostasis. The common femoral and deep superficial veins were then evaluated for flow and compressibility prior to dressing placement. The lower extremity was kept elevated at 45 degrees above the horizontal and cording material was applied over the saphenous segments and tributaries to allow for eccentric compression over the target vessels including the targeted saphenous vein(s). A multilayer dressing was applied consisting of foam pads, coban and thigh-high 20-30 mm Hg compression elastic support hose were placed on the patient. The leg was lowered only after compression had been applied and the patient was immediately ambulatory. The patient ambulated 10 minutes under supervision and was without apparent concerns at time of release. Post-care instructions include advising patient to keep post-treatment bandages in place and dry for 48 hours, avoid extended periods of inactivity, avoid heavy exercise for one week, wear compression stockings on the treated leg continuously for two weeks, to walk daily for 10 minutes over the next month. The patient was instructed to take an anti-inflammatory medicine as needed and to follow up for color duplex scan of the Saphenous veins, the treated branch saphenous varicosities, the adjacent deep veins, and additional treatment within 7 days. PERSONNEL: Janusz Duarte RN Electronically authenticated by: JOHNNA BATEMAN Date: 05/07/2023 15:07
== END 2023-05-07 12:57 | disposition home or self-care (01) ==
LOC: VC 12:57
PROVIDERS: PCP Radiology Diagnostic Radiology; Visit Provider Radiology Diagnostic Radiology
DX: I83.813 Varicose veins of bilateral lower extremities with pain (principal)
CPT/HCPCS: 36466

== ENCOUNTER 2023-05-14 11:20 | Outpatient (OUT) | payer BC, SELFPAY ==
--- NOTE | 2023-05-14 11:21 | VEIN_ITS ---
Patient: SALVADOR SERRATO Exam Date: 05/14/2023 : 1960 Gender:F Ordering : DR JOHNNA BATEMAN M.D. Admission #: [id number] Family : Order #: [id number] CLICK HERE TO VIEW EXAM RADIOLOGY REPORT PROCEDURE: [facility] - OFFICE VISIT FOLLOW UP COMPARISON: [facility], 04/22/2023. PROGRESS NOTES: The patient reports improvement in leg symptoms. There has been interval reduction in varicosities. The patient has followed our recommendations to walk 20-30 minutes once or twice per day since the procedure. Physical exam demonstrates decrease in varicosities of the leg. Persistent spider veins and reticular veins are identified along the legs bilaterally. Review of the ultrasound performed the same day demonstrates occlusive thrombus extending throughout the treated vein(s), see separate report, consistent with a successful ablation. No thrombus extending into or beyond the saphenofemoral junction. The patient expressed a desire to proceed with treatment of extensive bilateral reticular veins and spider veins. The patient was informed that treatment was a process and would require approximately 4 procedures/sessions. VEIN/[facility] EST TD IMPRESSION: 1. 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 2. Persistent reticular veins and spider veins bilaterally. PLAN: Bilateral lower extremity sclerotherapy. Nurse notes, history and physical were reviewed and confirmed, see attached forms. The nurse was present throughout the physical exam and consultation Dictated by: Beka Butts M.D. on 05/14/2023 at 13:49 Approved by: Beka Butts M.D. on 05/14/2023 at 13:50
--- NOTE | 2023-05-14 11:21 | VEIN_ITS ---
Patient: SAVLADOR SERRATO Exam Date: 05/14/2023 : 1960 Gender:F Ordering : DR JOHNNA BATEMAN M.D. Admission #: [id number] Family : Order #: [id number] CLICK HERE TO VIEW EXAM RADIOLOGY REPORT PROCEDURE: VC EXT VENOUS RT LMTD COMPARISON: VC EXT VENOUS RT LMTD, 04/16/2023. INDICATIONS: I80.01 Phlebitis of superficial veins of rt lower extremity TECHNIQUE: Lower extremity arcos scale and Duplex Doppler evaluation of the deep venous system from the inguinal ligament through the calf veins. FINDINGS: REGION: Right lower extremity. THROMBI: Negative for DVT. Varithena induced thrombus visualized at dist/med thigh, dist/ant thigh, and mid/med calf. COMPRESSIBILITY: Non-compressible segments. FLOW: Areas of no flow. OTHER: No patent varicose veins remain. CONCLUSION: 1. Successful post ablation occlusion of treated right lower extremity branch saphenous varicosities. Dictated by: Beka Butts M.D. on 05/14/2023 at 13:47 Approved by: Beka Butts M.D. on 05/14/2023 at 13:49
== END 2023-05-14 11:21 | disposition home or self-care (01) ==
LOC: VC 11:20
PROVIDERS: PCP Radiology Diagnostic Radiology; Visit Provider Radiology Diagnostic Radiology
DX: I80.01 Phlebitis and thrombophlebitis of superficial vessels of right lower extremity (principal)
CPT/HCPCS: 93971; G0463

== ENCOUNTER 2023-05-21 12:49 | Outpatient (OUT) | payer BC, SELFPAY ==
--- NOTE | 2023-05-21 | VEIN_ITS ---
[address] [address] Patient Name: SALVADOR SERRATO MRN: [id number] date: 1960 Sex: F Assigned Patient Location: Current Patient Location: Accession/Order Number: [id number] Exam Date: 05/21/2023 12:35 Report Date: 05/21/2023 13:54 At the request of: JOHNNA BATEMAN Procedure: VC INJ Sclerosing SOLMULT Vein EXAMINATION: VC INJ Sclerosing SOLMULT Vein HISTORY: Pain due to varicose veins of bilateral legs I83.813 COMPARISON: No relevant comparison available. TECHNIQUE: The risks and benefits of the procedure were explained at length to the patient and informed written consent was obtained. Janusz Duarte was present and assisted. The procedure was performed under sterile technique. The patient's leg was wrapped with Coban and postprocedural verbal and written instructions provided. SCLEROSANT: 4 cc, 0.5% polidocanol VEIN(S) INJECTED: 18 veins in the right leg VISUALIZATION: Ultrasound was not used to visualize the sclerosant ANESTHESIA: Supercooled air COMPLICATIONS: None VEIN/VC INJ Sclerosing SOLMULT Vein IMPRESSION: Technically successful sclerotherapy as described Electronically authenticated by: JOHNNA BATEMAN Date: 05/21/2023 13:54
== END 2023-05-21 12:50 | disposition home or self-care (01) ==
LOC: VC 12:49
PROVIDERS: PCP Radiology Diagnostic Radiology; Visit Provider Radiology Diagnostic Radiology
DX: I83.813 Varicose veins of bilateral lower extremities with pain (principal)
CPT/HCPCS: 36471